=== PATIENT | female | born 1990 | race Caucasian/White ===

== ENCOUNTER → 2017-02-08 | Outpatient (CLI) | payer OTHER ==
--- NOTE | 2017-02-08 08:58 | DIAGNOSTIC IMAGING REPORT ---
LEFT KNEE 3 VIEWS CLINICAL HISTORY: Left knee pain and COMPARISON: None. DISCUSSION: No fractures or dislocations are visualized. There is no radiographic evidence of a significant joint effusion. The provided lateral view is slightly obliqued. IMPRESSION: No fractures identified. Electronically signed by: Tesfaye Joseph M.D. 02/08/2017 8:56 AM Dictated Date/Time: 02/08/2017 8:56 AM
== END | disposition home or self-care (01) ==
LOC: C.RAD1850 08:46
PROVIDERS: ATTEND Physician Assistant
DX: M25.562 Pain in left knee (principal)

== ENCOUNTER → 2017-08-06 | Outpatient (CLI) | payer BC | END | disposition home or self-care (01) | LOC: C.PAPS 11:29 | PROVIDERS: ATTEND Physician Assistant | DX: Z01.419 Encounter for gynecological examination (general) (routine) without abnormal findings (principal) ==